=== PATIENT | male | born 1970 | race Caucasian/White ===

== ENCOUNTER 2021-04-15 20:32 | Inpatient (IN) ==
[2021-04-15] MEDS ORDERED: SOTROVIMAB 500 MG VIAL 500 MG in NS 0.9% 100 ml BAG 100 ML IV ONE (23:50)
[2021-04-16] MEDS ORDERED: Dexamethasone IV 4 MG/ML VIAL 1 ml VIAL IV SLOW PU ONE (00:16)
[2021-04-16] MEDS ORDERED: NS 0.9% 50 ML 50 ML IV ONE (00:22)
[2021-04-16] MEDS ORDERED: Lactated Ringers 1000 ml BAG 1,000 ML IV ONE ×2 (01:00→02:45)
[2021-04-16 01:29] LABS: Venous Bicarbonate HCO3 27.4 mmol/L (24-28)
[2021-04-16 01:34] LABS: ABS Lymphocytes 0.8 10^3/ul (1.0-4.8); ABS Monocytes 0.3 10^3/ul (0-0.8); ABS Neutrophils 2.5 10^3/ul (1.5-7.7); Eosinophil % 0.1 %; Hematocrit 44 % (42-52); Hemoglobin 15.5 g/dL (14.0-18.0); Lymphocyte % 21.7 %; Mean Corpuscular HGB Conc 36 g/dL (31-36); Mean Corpuscular Hemoglobin 30 pg (27-31); Mean Corpuscular Volume 84 fL (80-94); Mean Platelet Volume 8.7 fL (7.4-10.4); Nucleated Red Blood Cells % 0.1; Platelet Count 126 10^3/uL (150-450); Red Blood Count 5.16 10^6 /uL (4.18-5.48); Red Cell Distribution Width 13 % (10-15); White Blood Count 3.6 10^3/uL (3.5-10.8)
[2021-04-16] MEDS ORDERED: Ondansetron 4 mg VIAL 2 MG/ML 2 ml VIAL IV PRN (01:50)
[2021-04-16 01:51] LABS: Albumin 3.8 g/dL (3.2-5.2); Albumin/Globulin Ratio 1.5 (1-3); C Reactive Protein 72.39 mg/L (<8.01); Calcium 8.1 mg/dL (8.6-10.3); Globulin 2.6 g/dL (2-4); Potassium 3.7 mmol/L (3.5-5.0); Total Bilirubin 0.5 mg/dL (0.2-1.0); Total Protein 6.4 g/dL (6.4-8.9)
[2021-04-16 01:52] LABS: Troponin I 0.02 ng/mL (<0.03)
[2021-04-16 01:56] LABS: Activated Partial Thrombo Time 29.6 seconds (26.0-38.0); INR 1.1 (0.86-1.15)
[2021-04-16] MEDS ORDERED: Albuterol HFA INHALER 8 gm MDI INH PRN (02:06)
[2021-04-16 03:43] LABS: Ferritin 4912.4 ng/mL (24-336)
[2021-04-16] MEDS: Enoxaparin 40 MG/0.4 ML SYR SUBCUT SCH (04:51)
[2021-04-17] MEDS ORDERED: Dextran 70/Hypromellose Tears Eye Drops 15 ml BTL (for Artificials Tears) BOTH EYES PRN (01:00)
[2021-04-17 07:12] LABS: ABS Lymphocytes 1.2 10^3/ul (1.0-4.8); ABS Neutrophils 4.1 10^3/ul (1.5-7.7); Hematocrit 41 % (42-52); Hemoglobin 14.6 g/dL (14.0-18.0); Lymphocyte % 19.2 %; Mean Corpuscular HGB Conc 36 g/dL (31-36); Mean Corpuscular Hemoglobin 30 pg (27-31); Mean Corpuscular Volume 85 fL (80-94); Mean Platelet Volume 8.8 fL (7.4-10.4); Platelet Count 175 10^3/uL (150-450); Red Blood Count 4.81 10^6 /uL (4.18-5.48); Red Cell Distribution Width 13 % (10-15); White Blood Count 6.3 10^3/uL (3.5-10.8)
[2021-04-17 07:27] LABS: Calcium 8.4 mg/dL (8.6-10.3); Potassium 4.9 mmol/L (3.5-5.0); eGFR CKD-EPI 75.8 (>60)
[2021-04-17] MEDS: Enoxaparin 40 MG/0.4 ML SYR SUBCUT SCH (08:50)
[2021-04-17] MEDS ORDERED: Dextrose 50% Syringe 50 ml 25 GM/50 ML SYRINGE IV PUSH PRN ×2 (09:54→10:35)
[2021-04-17] MEDS: Insulin GLARGINE 100 un/ml 10 ml VIAL SUBCUT SCH (11:21)
[2021-04-18 07:18] LABS: ABS Monocytes 1.2 10^3/ul (0-0.8); ABS Neutrophils 8.2 10^3/ul (1.5-7.7); Hematocrit 40 % (42-52); Hemoglobin 14.2 g/dL (14.0-18.0); Lymphocyte % 9.7 %; Mean Corpuscular HGB Conc 36 g/dL (31-36); Mean Corpuscular Hemoglobin 30 pg (27-31); Mean Corpuscular Volume 85 fL (80-94); Mean Platelet Volume 7.8 fL (7.4-10.4); Platelet Count 216 10^3/uL (150-450); Red Blood Count 4.71 10^6 /uL (4.18-5.48); Red Cell Distribution Width 13 % (10-15); White Blood Count 10.4 10^3/uL (3.5-10.8)
[2021-04-18 07:38] LABS: Albumin 3.5 g/dL (3.2-5.2); Albumin/Globulin Ratio 1.4 (1-3); Calcium 8.1 mg/dL (8.6-10.3); Direct Bilirubin 0.1 mg/dL (0.03-0.18); Globulin 2.5 g/dL (2-4); Indirect Bilirubin 0.6 mg/dL (0.3-1.0); Potassium 4.5 mmol/L (3.5-5.0); Total Bilirubin 0.7 mg/dL (0.2-1.0); eGFR CKD-EPI 83.5 (>60)
[2021-04-18] MEDS: Enoxaparin 40 MG/0.4 ML SYR SUBCUT SCH (08:04)
[2021-04-18] MEDS: Insulin GLARGINE 100 un/ml 10 ml VIAL SUBCUT SCH (08:42)
[2021-04-18] MEDS ORDERED: Insulin GLARGINE 100 un/ml 10 ml VIAL SUBCUT ONE (10:07)
[2021-04-18] MEDS ORDERED: Remdesivir 100 mg Vial 200 MG in NS 0.9% 250 ml 210 ML IV ONE (10:30)
[2021-04-18 13:04] LABS: INR 1.04 (0.86-1.15)
[2021-04-18 13:09] LABS: Albumin 3.7 g/dL (3.2-5.2); Albumin/Globulin Ratio 1.3 (1-3); Calcium 8.3 mg/dL (8.6-10.3); Globulin 2.8 g/dL (2-4); Potassium 4.4 mmol/L (3.5-5.0); Total Bilirubin 0.7 mg/dL (0.2-1.0); Total Protein 6.5 g/dL (6.4-8.9); eGFR CKD-EPI 77.4 (>60)
[2021-04-18] MEDS: methylPREDNISolone 125 mg 2 ML VIAL IV SCH (17:49)
[2021-04-18 20:34] LABS: Glucose Confirmatory 416 mg/dL (70-100)
[2021-04-19] MEDS: methylPREDNISolone 125 mg 2 ML VIAL IV SCH ×3 (02:00→17:23)
[2021-04-19 07:06] LABS: ABS Lymphocytes 1.1 10^3/ul (1.0-4.8); ABS Monocytes 1.1 10^3/ul (0-0.8); ABS Neutrophils 6.1 10^3/ul (1.5-7.7); Eosinophil % 0.1 %; Hematocrit 41 % (42-52); Hemoglobin 14.6 g/dL (14.0-18.0); Lymphocyte % 13.2 %; Mean Corpuscular HGB Conc 35 g/dL (31-36); Mean Corpuscular Hemoglobin 30 pg (27-31); Mean Corpuscular Volume 86 fL (80-94); Mean Platelet Volume 8.2 fL (7.4-10.4); Nucleated Red Blood Cells % 0.1; Platelet Count 235 10^3/uL (150-450); Red Blood Count 4.82 10^6 /uL (4.18-5.48); Red Cell Distribution Width 13 % (10-15); White Blood Count 8.2 10^3/uL (3.5-10.8)
[2021-04-19 07:12] LABS: INR 1.01 (0.86-1.15)
[2021-04-19 07:29] LABS: Albumin 3.7 g/dL (3.2-5.2); Albumin/Globulin Ratio 1.4 (1-3); Calcium 8.3 mg/dL (8.6-10.3); Globulin 2.7 g/dL (2-4); Potassium 4.5 mmol/L (3.5-5.0); Total Bilirubin 0.8 mg/dL (0.2-1.0); Total Protein 6.4 g/dL (6.4-8.9); eGFR CKD-EPI 98.8 (>60)
[2021-04-19] MEDS ORDERED: Furosemide 40 mg/4 ml IV VIAL IV ONE ×2 (08:24→19:02)
[2021-04-19] MEDS: Enoxaparin 40 MG/0.4 ML SYR SUBCUT SCH (08:26)
[2021-04-19] MEDS: Insulin GLARGINE 100 un/ml 10 ml VIAL SUBCUT SCH (08:51)
[2021-04-19] MEDS: Remdesivir 100 mg Vial 100 MG in NS 0.9% 250 ml 230 ML IV SCH (09:27)
[2021-04-19] MEDS ORDERED: Insulin GLARGINE 100 un/ml 10 ml VIAL SUBCUT SCH ×2 (10:00)
[2021-04-19] MEDS ORDERED: Dextrose 50% Syringe 50 ml 25 GM/50 ML SYRINGE IV PUSH PRN (12:27)
[2021-04-19 18:42] LABS: PCO2 Arterial 34 mmHg (35-45); PO2 Arterial 76 mmHg (80-100)
[2021-04-19] MEDS ORDERED: Albuterol/Ipratropium NEB.SOL (2.5/0.5 MG) 3 ML NEB.SOLN INH ONE (19:02)
[2021-04-19] MEDS ORDERED: Insulin GLARGINE 100 un/ml 10 ml VIAL SUBCUT ONE (21:00)
[2021-04-19 22:07] LABS: Glucose Confirmatory 457 mg/dL (70-100)
[2021-04-20] MEDS: methylPREDNISolone SOD 40 mg/ml 1 ml VIAL IV SCH ×3 (00:54→18:28)
[2021-04-20 04:34] LABS: ABS Lymphocytes 1.2 10^3/ul (1.0-4.8); ABS Monocytes 1.5 10^3/ul (0-0.8); ABS Neutrophils 6.5 10^3/ul (1.5-7.7); Hematocrit 40 % (42-52); Hemoglobin 14.2 g/dL (14.0-18.0); Mean Corpuscular HGB Conc 35 g/dL (31-36); Mean Corpuscular Hemoglobin 30 pg (27-31); Mean Corpuscular Volume 85 fL (80-94); Mean Platelet Volume 7.8 fL (7.4-10.4); Platelet Count 270 10^3/uL (150-450); Red Blood Count 4.74 10^6 /uL (4.18-5.48); Red Cell Distribution Width 12 % (10-15); White Blood Count 9.2 10^3/uL (3.5-10.8)
[2021-04-20 04:42] LABS: INR 1.04 (0.86-1.15)
[2021-04-20 04:47] LABS: PCO2 Arterial 36 mmHg (35-45); PO2 Arterial 64 mmHg (80-100)
[2021-04-20 04:50] LABS: Albumin 3.5 g/dL (3.2-5.2); Albumin/Globulin Ratio 1.3 (1-3); Calcium 8.3 mg/dL (8.6-10.3); Globulin 2.7 g/dL (2-4); Potassium 3.7 mmol/L (3.5-5.0); Total Bilirubin 0.6 mg/dL (0.2-1.0); Total Protein 6.2 g/dL (6.4-8.9); eGFR CKD-EPI 83.5 (>60)
[2021-04-20] MEDS ORDERED: Potassium Chlor 20 meq TAB.ER PO ONE (05:06)
[2021-04-20] MEDS ORDERED: Furosemide 40 mg/4 ml IV VIAL IV SLOW PU ONE (07:59)
[2021-04-20] MEDS: Enoxaparin 40 MG/0.4 ML SYR SUBCUT SCH (08:39)
[2021-04-20] MEDS: Insulin GLARGINE 100 un/ml 10 ml VIAL SUBCUT SCH (08:39)
[2021-04-20] MEDS: Remdesivir 100 mg Vial 100 MG in NS 0.9% 250 ml 230 ML IV SCH (10:14)
[2021-04-20 18:12] LABS: Glucose Confirmatory 419 mg/dL (70-100)
[2021-04-21] MEDS: methylPREDNISolone SOD 40 mg/ml 1 ml VIAL IV SCH ×3 (00:27→20:38)
[2021-04-21 05:43] LABS: Albumin 3.5 g/dL (3.2-5.2); Albumin/Globulin Ratio 1.3 (1-3); Calcium 8.1 mg/dL (8.6-10.3); Globulin 2.6 g/dL (2-4); Potassium 4.4 mmol/L (3.5-5.0); Total Bilirubin 0.9 mg/dL (0.2-1.0); Total Protein 6.1 g/dL (6.4-8.9); eGFR CKD-EPI 97.5 (>60)
[2021-04-21] MEDS: Enoxaparin 40 MG/0.4 ML SYR SUBCUT SCH (08:31)
[2021-04-21] MEDS ORDERED: Furosemide 40 mg/4 ml IV VIAL IV SLOW PU ONE (09:33)
[2021-04-21] MEDS ORDERED: Insulin GLARGINE 100 un/ml 10 ml VIAL SUBCUT SCH (10:00)
[2021-04-21] MEDS: Remdesivir 100 mg Vial 100 MG in NS 0.9% 250 ml 230 ML IV SCH (10:51)
[2021-04-21] MEDS: Insulin GLARGINE 100 un/ml 10 ml VIAL SUBCUT SCH (20:38)
[2021-04-22 05:06] LABS: INR 1.02 (0.86-1.15)
[2021-04-22 05:16] LABS: Albumin 3.3 g/dL (3.2-5.2); Albumin/Globulin Ratio 1.4 (1-3); Calcium 7.8 mg/dL (8.6-10.3); Globulin 2.4 g/dL (2-4); Magnesium 2.4 mg/dL (1.9-2.7); Phosphorus 3.9 mg/dL (2.5-5.0); Potassium 4.7 mmol/L (3.5-5.0); Total Bilirubin 0.8 mg/dL (0.2-1.0); Total Protein 5.7 g/dL (6.4-8.9); eGFR CKD-EPI 90.6 (>60)
[2021-04-22] MEDS ORDERED: Furosemide 40 mg/4 ml IV VIAL IV ONE (08:31)
[2021-04-22] MEDS: Enoxaparin 40 MG/0.4 ML SYR SUBCUT SCH (09:04)
[2021-04-22] MEDS: methylPREDNISolone SOD 40 mg/ml 1 ml VIAL IV SCH ×2 (09:06→21:12)
[2021-04-22] MEDS: Insulin GLARGINE 100 un/ml 10 ml VIAL SUBCUT SCH ×2 (09:07→21:20)
[2021-04-22] MEDS ORDERED: Acetaminophen IV 1 GM/100ML 50 ML IV ONE (12:30)
[2021-04-22 13:53] LABS: Calcium 8.2 mg/dL (8.6-10.3); Magnesium 2.2 mg/dL (1.9-2.7); eGFR CKD-EPI 85.4 (>60)
[2021-04-22 15:03] LABS: Potassium 4.8 mmol/L (3.5-5.0)
[2021-04-22 17:27] LABS: Glucose Confirmatory 418 mg/dL (70-100)
[2021-04-23 05:18] LABS: INR 1.04 (0.86-1.15)
[2021-04-23 05:27] LABS: Albumin 3.3 g/dL (3.2-5.2); Albumin/Globulin Ratio 1.3 (1-3); Calcium 8.4 mg/dL (8.6-10.3); Globulin 2.5 g/dL (2-4); Total Bilirubin 0.7 mg/dL (0.2-1.0); Total Protein 5.8 g/dL (6.4-8.9); eGFR CKD-EPI 98.8 (>60)
[2021-04-23 08:24] LABS: Hematocrit 39 % (42-52); Hemoglobin 13.6 g/dL (14.0-18.0); Mean Corpuscular HGB Conc 35 g/dL (31-36); Mean Corpuscular Hemoglobin 30 pg (27-31); Mean Corpuscular Volume 86 fL (80-94); Mean Platelet Volume 8.7 fL (7.4-10.4); Platelet Count 261 10^3/uL (150-450); Red Blood Count 4.55 10^6 /uL (4.18-5.48); Red Cell Distribution Width 13 % (10-15); White Blood Count 11.8 10^3/uL (3.5-10.8)
[2021-04-23] MEDS: Enoxaparin 40 MG/0.4 ML SYR SUBCUT SCH (08:25)
[2021-04-23] MEDS: Insulin GLARGINE 100 un/ml 10 ml VIAL SUBCUT SCH ×2 (08:25→21:14)
[2021-04-23] MEDS: methylPREDNISolone SOD 40 mg/ml 1 ml VIAL IV SCH (08:25)
[2021-04-23] MEDS ORDERED: Furosemide 40 mg/4 ml IV VIAL IV ONE (15:28)
[2021-04-23] MEDS: methylPREDNISolone 125 mg 2 ML VIAL IV SCH (21:05)
[2021-04-24 08:49] LABS: Hematocrit 42 % (42-52); Hemoglobin 14.5 g/dL (14.0-18.0); Mean Corpuscular HGB Conc 34 g/dL (31-36); Mean Corpuscular Hemoglobin 30 pg (27-31); Mean Corpuscular Volume 87 fL (80-94); Mean Platelet Volume 7.8 fL (7.4-10.4); Platelet Count 220 10^3/uL (150-450); Red Blood Count 4.89 10^6 /uL (4.18-5.48); Red Cell Distribution Width 13 % (10-15); White Blood Count 11.3 10^3/uL (3.5-10.8)
[2021-04-24 09:04] LABS: Albumin 3.6 g/dL (3.2-5.2); Albumin/Globulin Ratio 1.3 (1-3); Calcium 8.7 mg/dL (8.6-10.3); Globulin 2.8 g/dL (2-4); Potassium 4.6 mmol/L (3.5-5.0); Total Bilirubin 0.6 mg/dL (0.2-1.0); Total Protein 6.4 g/dL (6.4-8.9)
[2021-04-24] MEDS ORDERED: Insulin GLARGINE 100 un/ml 10 ml VIAL ONE (09:06)
[2021-04-24] MEDS: Insulin GLARGINE 100 un/ml 10 ml VIAL SUBCUT SCH ×2 (09:16→20:55)
[2021-04-24] MEDS: methylPREDNISolone 125 mg 2 ML VIAL IV SCH ×2 (09:16→20:27)
[2021-04-24] MEDS: Enoxaparin 40 MG/0.4 ML SYR SUBCUT SCH (09:16)
[2021-04-24 09:50] LABS: RBC Morphology Normal (Normal)
[2021-04-24 09:51] LABS: ABS Lymphocytes 0.9 10^3/ul (1.0-4.8); ABS Monocytes 0.5 10^3/ul (0-0.8); ABS Neutrophils 9.9 10^3/ul (1.5-7.7); Eosinophil % 0.2 %; Lymphocyte % 7.8 %; Nucleated Red Blood Cells % 0.3
[2021-04-24] MEDS ORDERED: Furosemide 40 mg/4 ml IV VIAL IV ONE (11:26)
[2021-04-24 12:26] LABS: Glucose Confirmatory 435 mg/dL (70-100)
[2021-04-24 17:28] LABS: Glucose Confirmatory 434 mg/dL (70-100)
[2021-04-24 20:37] LABS: Glucose Confirmatory 425 mg/dL (70-100)
[2021-04-25] MEDS ORDERED: Dextrose 50% Syringe 50 ml 25 GM/50 ML SYRINGE IV PUSH PRN (00:49)
[2021-04-25 05:13] LABS: Hematocrit 42 % (42-52); Hemoglobin 14.9 g/dL (14.0-18.0); Mean Corpuscular HGB Conc 35 g/dL (31-36); Mean Corpuscular Hemoglobin 30 pg (27-31); Mean Corpuscular Volume 84 fL (80-94); Mean Platelet Volume 8.1 fL (7.4-10.4); Platelet Count 226 10^3/uL (150-450); Red Blood Count 5.01 10^6 /uL (4.18-5.48); Red Cell Distribution Width 13 % (10-15); White Blood Count 17.2 10^3/uL (3.5-10.8)
[2021-04-25 05:26] LABS: Albumin 3.6 g/dL (3.2-5.2); Albumin/Globulin Ratio 1.1 (1-3); Calcium 8.7 mg/dL (8.6-10.3); Globulin 3.2 g/dL (2-4); Potassium 4.1 mmol/L (3.5-5.0); Total Bilirubin 0.7 mg/dL (0.2-1.0); Total Protein 6.8 g/dL (6.4-8.9); eGFR CKD-EPI 88.4 (>60)
[2021-04-25 05:39] LABS: ABS Eosinophils 0.4 10^3/ul (0-0.6); ABS Lymphocytes 1.4 10^3/ul (1.0-4.8); ABS Monocytes 0.5 10^3/ul (0-0.8); ABS Neutrophils 14.9 10^3/ul (1.5-7.7); Eosinophil % 2.5 %; Lymphocyte % 8.3 %
[2021-04-25] MEDS: Insulin GLARGINE 100 un/ml 10 ml VIAL SUBCUT SCH ×2 (09:02→20:53)
[2021-04-25] MEDS: Enoxaparin 40 MG/0.4 ML SYR SUBCUT SCH (09:02)
[2021-04-25] MEDS: methylPREDNISolone 125 mg 2 ML VIAL IV SCH (09:03)
[2021-04-25] MEDS ORDERED: Furosemide 40 mg/4 ml IV VIAL IV ONE (12:20)
[2021-04-25] MEDS: methylPREDNISolone SOD 40 mg/ml 1 ml VIAL IV SCH (20:54)
[2021-04-25] MEDS ORDERED: methylPREDNISolone 125 mg 2 ML VIAL IV SCH (21:00)
[2021-04-26 04:35] LABS: ABS Eosinophils 0.1 10^3/ul (0-0.6); ABS Monocytes 0.6 10^3/ul (0-0.8); ABS Neutrophils 11.2 10^3/ul (1.5-7.7); Eosinophil % 0.4 %; Hematocrit 41 % (42-52); Mean Corpuscular HGB Conc 35 g/dL (31-36); Mean Corpuscular Hemoglobin 30 pg (27-31); Mean Corpuscular Volume 87 fL (80-94); Mean Platelet Volume 8.1 fL (7.4-10.4); Platelet Count 183 10^3/uL (150-450); Red Blood Count 4.65 10^6 /uL (4.18-5.48); Red Cell Distribution Width 13 % (10-15); White Blood Count 12.8 10^3/uL (3.5-10.8)
[2021-04-26 04:51] LABS: Albumin 3.4 g/dL (3.2-5.2); Albumin/Globulin Ratio 1.1 (1-3); Calcium 8.7 mg/dL (8.6-10.3); Globulin 3.2 g/dL (2-4); Potassium 4.9 mmol/L (3.5-5.0); Total Bilirubin 0.6 mg/dL (0.2-1.0); Total Protein 6.6 g/dL (6.4-8.9); eGFR CKD-EPI 102.8 (>60)
[2021-04-26] MEDS: Insulin GLARGINE 100 un/ml 10 ml VIAL SUBCUT SCH ×2 (08:08→21:41)
[2021-04-26] MEDS: Enoxaparin 40 MG/0.4 ML SYR SUBCUT SCH (08:09)
[2021-04-26] MEDS ORDERED: Furosemide 40 mg/4 ml IV VIAL IV SLOW PU ONE (11:38)
[2021-04-26] MEDS ORDERED: Morphine 2 MG/ML SYRINGE ONE (13:21)
[2021-04-26] MEDS: Morphine 2 MG/ML SYRINGE IV PRN ×3 (13:25→22:33)
[2021-04-26] MEDS ORDERED: Lorazepam PYXIS KEY PRN ×2 (20:06→22:16)
[2021-04-26] MEDS ORDERED: LORazepam 2 mg VIAL 1 ml IV PUSH ONE ×2 (20:07→22:16)
[2021-04-26] MEDS: methylPREDNISolone SOD 40 mg/ml 1 ml VIAL IV SCH (20:28)
[2021-04-26] MEDS ORDERED: diPHENhydraMINE 25 mg TAB PO ONE (22:27)
[2021-04-26] MEDS ORDERED: diPHENhydraMINE 25 mg TAB ONE (22:31)
[2021-04-26 22:39] LABS: PCO2 Arterial 41 mmHg (35-45); PO2 Arterial 72 mmHg (80-100)
[2021-04-26] MEDS ORDERED: Dexmedetomidine 1,000 MCG in NS 0.9% 250 ml 240 ML IV SCH (23:45)
[2021-04-27] MEDS ORDERED: Haloperidol 5 mg/ml SDV IV/IM 5 MG/ML AMP IV SLOW PU PRN (01:19)
[2021-04-27] MEDS ORDERED: Haloperidol 5 mg/ml SDV IV/IM 5 MG/ML AMP ONE (01:26)
[2021-04-27 04:31] LABS: ABS Eosinophils 0.1 10^3/ul (0-0.6); ABS Lymphocytes 0.8 10^3/ul (1.0-4.8); ABS Monocytes 0.5 10^3/ul (0-0.8); Eosinophil % 0.7 %; Hematocrit 38 % (42-52); Hemoglobin 12.9 g/dL (14.0-18.0); Lymphocyte % 6.1 %; Mean Corpuscular HGB Conc 34 g/dL (31-36); Mean Corpuscular Hemoglobin 30 pg (27-31); Mean Corpuscular Volume 87 fL (80-94); Mean Platelet Volume 7.8 fL (7.4-10.4); Platelet Count 151 10^3/uL (150-450); Red Blood Count 4.36 10^6 /uL (4.18-5.48); Red Cell Distribution Width 13 % (10-15); White Blood Count 13.5 10^3/uL (3.5-10.8)
[2021-04-27 04:46] LABS: Albumin 3.2 g/dL (3.2-5.2); Albumin/Globulin Ratio 1.1 (1-3); Calcium 8.3 mg/dL (8.6-10.3); Globulin 2.9 g/dL (2-4); Magnesium 2.2 mg/dL (1.9-2.7); Phosphorus 4.2 mg/dL (2.5-5.0); Total Bilirubin 0.7 mg/dL (0.2-1.0); Total Protein 6.1 g/dL (6.4-8.9); eGFR CKD-EPI 82.6 (>60)
[2021-04-27] MEDS: Insulin GLARGINE 100 un/ml 10 ml VIAL SUBCUT SCH (09:09)
[2021-04-27] MEDS: Enoxaparin 40 MG/0.4 ML SYR SUBCUT SCH (09:09)
[2021-04-27 09:22] LABS: Urine Appearance Cloudy; Urine Bilirubin Negative (Negative); Urine Blood 1+ (Negative); Urine Color Yellow; Urine Glucose Negative (Negative); Urine Ketones Negative (Negative); Urine Nitrite Negative (Negative); Urine Protein 1+(30 mg/dL) (Negative); Urine Urobilinogen Negative (Negative)
[2021-04-27 09:44] LABS: Urine Bacteria Absent (Absent); Urine Red Blood Cell 2+(6-10/hpf) (Absent); Urine Squamous Epithelial Cell Present (Absent); Urine White Blood Cell Trace(0-5/hpf) (Absent)
[2021-04-27] MEDS ORDERED: Acetaminophen IV 1 GM/100ML 100 ML IV ONE (13:47)
[2021-04-27] MEDS: Morphine 2 MG/ML SYRINGE IV PRN ×3 (13:55→23:43)
[2021-04-27] MEDS ORDERED: Acetaminophen IV 1 GM/100ML VI 100 ML ONE (14:41)
[2021-04-27] MEDS ORDERED: Piperacillin/Tazobac ADVAN 3.375 GM in NS 0.9% 100 ml BAG 100 ML IV ONE (15:06)
[2021-04-27] MEDS ORDERED: Zosyn per Pharmacy NOTE FOLLOW UP SCH (16:00)
[2021-04-27] MEDS ORDERED: Acetaminophen IV 1 GM/100ML VI 100 ML IV ONE (20:00)
[2021-04-27] MEDS: ZOSYN 3.375 GM Q8H per EXTENDED INFUSION IV SCH (20:01)
[2021-04-27] MEDS: methylPREDNISolone SOD 40 mg/ml 1 ml VIAL IV SCH (22:21)
[2021-04-28] MEDS: ZOSYN 3.375 GM Q8H per EXTENDED INFUSION IV SCH ×3 (03:19→20:06)
[2021-04-28] MEDS: Morphine 2 MG/ML SYRINGE IV PRN ×5 (03:19→20:06)
[2021-04-28 07:06] LABS: ABS Lymphocytes 0.7 10^3/ul (1.0-4.8); ABS Monocytes 0.4 10^3/ul (0-0.8); ABS Neutrophils 9.9 10^3/ul (1.5-7.7); Eosinophil % 0.2 %; Hematocrit 40 % (42-52); Hemoglobin 13.5 g/dL (14.0-18.0); Lymphocyte % 6.1 %; Mean Corpuscular HGB Conc 34 g/dL (31-36); Mean Corpuscular Hemoglobin 30 pg (27-31); Mean Corpuscular Volume 88 fL (80-94); Mean Platelet Volume 8.4 fL (7.4-10.4); Platelet Count 135 10^3/uL (150-450); Red Blood Count 4.52 10^6 /uL (4.18-5.48); Red Cell Distribution Width 13 % (10-15); White Blood Count 11.1 10^3/uL (3.5-10.8)
[2021-04-28 07:20] LABS: Albumin 3.1 g/dL (3.2-5.2); Calcium 8.3 mg/dL (8.6-10.3); Globulin 3.1 g/dL (2-4); Magnesium 2.4 mg/dL (1.9-2.7); Phosphorus 4.8 mg/dL (2.5-5.0); Potassium 4.9 mmol/L (3.5-5.0); Total Bilirubin 0.8 mg/dL (0.2-1.0); Total Protein 6.2 g/dL (6.4-8.9); eGFR CKD-EPI 69.3 (>60)
[2021-04-28] MEDS ORDERED: Furosemide 40 mg/4 ml IV VIAL IV SLOW PU ONE (10:07)
[2021-04-28] MEDS: Enoxaparin 40 MG/0.4 ML SYR SUBCUT SCH (10:39)
[2021-04-28] MEDS ORDERED: Morphine 2 MG/ML SYRINGE ONE (11:51)
[2021-04-28] MEDS ORDERED: Morphine 2 MG/ML SYRINGE IV ONE (11:52)
[2021-04-28] MEDS: methylPREDNISolone SOD 40 mg/ml 1 ml VIAL IV SCH (20:07)
[2021-04-29] MEDS: ZOSYN 3.375 GM Q8H per EXTENDED INFUSION IV SCH ×3 (02:37→19:08)
[2021-04-29 05:02] LABS: ABS Lymphocytes 0.6 10^3/ul (1.0-4.8); ABS Monocytes 0.4 10^3/ul (0-0.8); ABS Neutrophils 10.2 10^3/ul (1.5-7.7); Hematocrit 38 % (42-52); Hemoglobin 13.1 g/dL (14.0-18.0); Lymphocyte % 5.4 %; Mean Corpuscular HGB Conc 34 g/dL (31-36); Mean Corpuscular Hemoglobin 30 pg (27-31); Mean Corpuscular Volume 87 fL (80-94); Nucleated Red Blood Cells % 0.1; Platelet Count 147 10^3/uL (150-450); Red Blood Count 4.42 10^6 /uL (4.18-5.48); Red Cell Distribution Width 13 % (10-15); White Blood Count 11.1 10^3/uL (3.5-10.8)
[2021-04-29] MEDS: Morphine 2 MG/ML SYRINGE IV PRN ×6 (05:06→21:00)
[2021-04-29 05:18] LABS: Calcium 8.2 mg/dL (8.6-10.3); Magnesium 2.4 mg/dL (1.9-2.7); Phosphorus 4.1 mg/dL (2.5-5.0); Potassium 4.7 mmol/L (3.5-5.0); eGFR CKD-EPI 71.3 (>60)
[2021-04-29] MEDS: Enoxaparin 40 MG/0.4 ML SYR SUBCUT SCH (08:30)
[2021-04-29] MEDS ORDERED: Furosemide 40 mg/4 ml IV VIAL IV ONE (09:03)
[2021-04-29] MEDS: methylPREDNISolone SOD 40 mg/ml 1 ml VIAL IV SCH ×2 (11:03→21:39)
[2021-04-29] MEDS ORDERED: methylPREDNISolone 125 mg 2 ML VIAL IV ONE (12:50)
[2021-04-29] MEDS ORDERED: Insulin GLARGINE 100 un/ml 10 ml VIAL SUBCUT SCH (21:00)
[2021-04-29 21:23] LABS: Glucose Confirmatory 450 mg/dL (70-100)
[2021-04-29] MEDS: Insulin GLARGINE 100 un/ml 10 ml VIAL SUBCUT SCH (21:39)
[2021-04-30] MEDS: Morphine 2 MG/ML SYRINGE IV PRN ×7 (02:38→23:48)
[2021-04-30] MEDS: ZOSYN 3.375 GM Q8H per EXTENDED INFUSION IV SCH ×3 (02:38→21:13)
[2021-04-30 05:57] LABS: ABS Lymphocytes 0.7 10^3/ul (1.0-4.8); ABS Monocytes 0.4 10^3/ul (0-0.8); Eosinophil % 0.1 %; Hematocrit 38 % (42-52); Hemoglobin 13.5 g/dL (14.0-18.0); Lymphocyte % 10.2 %; Mean Corpuscular HGB Conc 35 g/dL (31-36); Mean Corpuscular Hemoglobin 31 pg (27-31); Mean Corpuscular Volume 87 fL (80-94); Mean Platelet Volume 8.3 fL (7.4-10.4); Nucleated Red Blood Cells % 0.1; Platelet Count 170 10^3/uL (150-450); Red Blood Count 4.39 10^6 /uL (4.18-5.48); Red Cell Distribution Width 12 % (10-15); White Blood Count 7.2 10^3/uL (3.5-10.8)
[2021-04-30 06:17] LABS: Calcium 8.5 mg/dL (8.6-10.3); Magnesium 2.4 mg/dL (1.9-2.7); Potassium 4.7 mmol/L (3.5-5.0); eGFR CKD-EPI 75.8 (>60)
[2021-04-30] MEDS ORDERED: Furosemide 20 mg/2 ml IV VIAL IV SLOW PU ONE ×2 (08:51→15:49)
[2021-04-30] MEDS ORDERED: Senna TAB 8.6 mg TAB PO PRN (09:22)
[2021-04-30] MEDS ORDERED: Furosemide 40 mg/4 ml IV VIAL ONE (09:30)
[2021-04-30] MEDS: Enoxaparin 40 MG/0.4 ML SYR SUBCUT SCH (09:32)
[2021-04-30] MEDS: methylPREDNISolone SOD 40 mg/ml 1 ml VIAL IV SCH ×2 (09:34→23:38)
[2021-04-30] MEDS: Insulin GLARGINE 100 un/ml 10 ml VIAL SUBCUT SCH (09:59)
[2021-04-30 14:52] LABS: PCO2 Arterial 40 mmHg (35-45)
[2021-04-30 15:01] LABS: PO2 Arterial 52 mmHg (80-100)
[2021-04-30] MEDS ORDERED: Dextrose 50% Syringe 50 ml 25 GM/50 ML SYRINGE IV PUSH PRN (17:13)
[2021-04-30] MEDS: Magnesium Hydroxide LIQ 30 ML UDC PO SCH (17:17)
[2021-04-30] MEDS: Polyethylene Glycol 3350 17 GM PACKET PO SCH (20:51)
[2021-04-30] MEDS ORDERED: Magnesium Hydroxide LIQ 30 ML UDC PO SCH (21:00)
[2021-04-30 21:22] LABS: PCO2 Arterial 43 mmHg (35-45); PO2 Arterial 71 mmHg (80-100)
[2021-05-01] MEDS: ZOSYN 3.375 GM Q8H per EXTENDED INFUSION IV SCH ×3 (03:59→20:23)
[2021-05-01 05:54] LABS: Hematocrit 40 % (42-52); Hemoglobin 13.6 g/dL (14.0-18.0); Mean Corpuscular HGB Conc 34 g/dL (31-36); Mean Corpuscular Hemoglobin 30 pg (27-31); Mean Corpuscular Volume 87 fL (80-94); Mean Platelet Volume 8.9 fL (7.4-10.4); Platelet Count 189 10^3/uL (150-450); Red Blood Count 4.57 10^6 /uL (4.18-5.48); Red Cell Distribution Width 13 % (10-15); White Blood Count 13.7 10^3/uL (3.5-10.8)
[2021-05-01 06:11] LABS: Calcium 8.3 mg/dL (8.6-10.3); Magnesium 2.3 mg/dL (1.9-2.7); Potassium 5.1 mmol/L (3.5-5.0); eGFR CKD-EPI 82.6 (>60)
[2021-05-01 06:44] LABS: Phosphorus 3.6 mg/dL (2.5-5.0)
[2021-05-01] MEDS: Polyethylene Glycol 3350 17 GM PACKET PO SCH ×2 (07:32→20:37)
[2021-05-01] MEDS: Morphine 2 MG/ML SYRINGE IV PRN ×8 (08:01→20:35)
[2021-05-01] MEDS ORDERED: Furosemide 40 mg/4 ml IV VIAL IV ONE (08:49)
[2021-05-01] MEDS: Enoxaparin 40 MG/0.4 ML SYR SUBCUT SCH (08:57)
[2021-05-01] MEDS ORDERED: Insulin GLARGINE 100 un/ml 10 ml VIAL SUBCUT SCH (09:00)
[2021-05-01] MEDS: Acetylcysteine 600mgCAP(RENAL) PO SCH ×2 (10:31→20:35)
[2021-05-01] MEDS: methylPREDNISolone SOD 40 mg/ml 1 ml VIAL IV SCH ×2 (10:32→20:33)
[2021-05-01] MEDS: Magnesium Hydroxide LIQ 30 ML UDC PO SCH ×2 (10:46→20:37)
[2021-05-02] MEDS: Morphine 2 MG/ML SYRINGE IV PRN ×15 (00:18→21:35)
[2021-05-02] MEDS: ZOSYN 3.375 GM Q8H per EXTENDED INFUSION IV SCH ×2 (04:17→11:59)
[2021-05-02 04:44] LABS: Albumin 3.3 g/dL (3.2-5.2); Calcium 8.5 mg/dL (8.6-10.3); Magnesium 2.4 mg/dL (1.9-2.7); Total Bilirubin 0.9 mg/dL (0.2-1.0)
[2021-05-02 04:45] LABS: Potassium 5.1 mmol/L (3.5-5.0)
[2021-05-02 04:46] LABS: ABS Lymphocytes 0.8 10^3/ul (1.0-4.8); ABS Monocytes 0.5 10^3/ul (0-0.8); ABS Neutrophils 10.2 10^3/ul (1.5-7.7); Eosinophil % 0.4 %; Hematocrit 41 % (42-52); Hemoglobin 14.1 g/dL (14.0-18.0); Lymphocyte % 7.2 %; Mean Corpuscular HGB Conc 34 g/dL (31-36); Mean Corpuscular Hemoglobin 30 pg (27-31); Mean Corpuscular Volume 87 fL (80-94); Mean Platelet Volume 8.6 fL (7.4-10.4); Platelet Count 173 10^3/uL (150-450); Red Blood Count 4.74 10^6 /uL (4.18-5.48); Red Cell Distribution Width 12 % (10-15); White Blood Count 11.6 10^3/uL (3.5-10.8)
[2021-05-02 04:50] LABS: Albumin/Globulin Ratio 0.9 (1-3); Globulin 3.6 g/dL (2-4); Phosphorus 3.6 mg/dL (2.5-5.0); Total Protein 6.9 g/dL (6.4-8.9); eGFR CKD-EPI 92.8 (>60)
[2021-05-02] MEDS: Enoxaparin 40 MG/0.4 ML SYR SUBCUT SCH (07:43)
[2021-05-02] MEDS: Acetylcysteine 600mgCAP(RENAL) PO SCH ×2 (07:44→21:02)
[2021-05-02] MEDS: Polyethylene Glycol 3350 17 GM PACKET PO SCH ×2 (07:45→21:02)
[2021-05-02] MEDS: methylPREDNISolone SOD 40 mg/ml 1 ml VIAL IV SCH ×2 (07:45→22:12)
[2021-05-02] MEDS ORDERED: Morphine 2 MG/ML SYRINGE ONE ×2 (08:16→09:16)
[2021-05-02] MEDS: Magnesium Hydroxide LIQ 30 ML UDC PO SCH ×2 (09:09→21:02)
[2021-05-02] MEDS ORDERED: Furosemide 40 mg/4 ml IV VIAL IV ONE (09:19)
[2021-05-02 14:05] LABS: C Reactive Protein 64.4 mg/L (<8.01)
[2021-05-02] MEDS ORDERED: Metoprolol Tartrate 5 mg VIAL 5 ml VIAL (1 mg/ml) IV ONE (20:20)
[2021-05-02] MEDS ORDERED: Metoprolol Tartrate 5 mg VIAL 5 ml VIAL (1 mg/ml) ONE (20:21)
[2021-05-02 20:48] LABS: PCO2 Arterial 47 mmHg (35-45)
[2021-05-02] MEDS: Heparin 5000 UNITS/ML 1 mL VIAL IV SCH (20:48)
[2021-05-02] MEDS: Heparin DRIP 25,000 UNITS BAG 25,000 UNITS/500 ML BAG IV SCH (20:49)
[2021-05-02 20:55] LABS: PO2 Arterial Temp Correct <38 mmHg (80-100)
[2021-05-02 20:59] LABS: Hematocrit 47 % (42-52); Hemoglobin 16.2 g/dL (14.0-18.0); Mean Corpuscular HGB Conc 34 g/dL (31-36); Mean Corpuscular Hemoglobin 30 pg (27-31); Mean Corpuscular Volume 87 fL (80-94); Mean Platelet Volume 8.4 fL (7.4-10.4); Platelet Count 234 10^3/uL (150-450); Red Blood Count 5.41 10^6 /uL (4.18-5.48); Red Cell Distribution Width 13 % (10-15); White Blood Count 25.4 10^3/uL (3.5-10.8)
[2021-05-02 21:16] LABS: Calcium 9.1 mg/dL (8.6-10.3); Potassium 4.8 mmol/L (3.5-5.0); eGFR CKD-EPI 77.4 (>60)
[2021-05-02 21:18] LABS: Troponin I 0.01 ng/mL (<0.03)
[2021-05-02 21:36] LABS: ABS Basophils 0.1 10^3/ul (0-0.2); ABS Eosinophils 0.4 10^3/ul (0-0.6); ABS Lymphocytes 2.4 10^3/ul (1.0-4.8); ABS Neutrophils 21.5 10^3/ul (1.5-7.7); Eosinophil % 1.6 %; Lymphocyte % 9.4 %
[2021-05-02] MEDS ORDERED: Morphine 2 MG/ML SYRINGE IV ONE (21:55)
[2021-05-02] MEDS: Insulin GLARGINE 100 un/ml 10 ml VIAL SUBCUT SCH (22:12)
[2021-05-03] MEDS: Morphine 2 MG/ML SYRINGE IV PRN ×11 (04:08→23:35)
[2021-05-03] MEDS: Heparin 5000 UNITS/ML 1 mL VIAL IV SCH (04:24)
[2021-05-03 06:16] LABS: ABS Basophils 0.1 10^3/ul (0-0.2); ABS Eosinophils 0.1 10^3/ul (0-0.6); ABS Lymphocytes 0.9 10^3/ul (1.0-4.8); ABS Monocytes 0.6 10^3/ul (0-0.8); ABS Neutrophils 17.2 10^3/ul (1.5-7.7); Eosinophil % 0.4 %; Hematocrit 42 % (42-52); Hemoglobin 14.2 g/dL (14.0-18.0); Lymphocyte % 4.6 %; Mean Corpuscular HGB Conc 34 g/dL (31-36); Mean Corpuscular Hemoglobin 29 pg (27-31); Mean Corpuscular Volume 87 fL (80-94); Mean Platelet Volume 8.8 fL (7.4-10.4); Platelet Count 163 10^3/uL (150-450); Red Blood Count 4.83 10^6 /uL (4.18-5.48); Red Cell Distribution Width 12 % (10-15); White Blood Count 18.8 10^3/uL (3.5-10.8)
[2021-05-03 06:37] LABS: Calcium 8.5 mg/dL (8.6-10.3); Magnesium 2.4 mg/dL (1.9-2.7); Potassium 4.9 mmol/L (3.5-5.0); eGFR CKD-EPI 89.5 (>60)
[2021-05-03] MEDS: Acetylcysteine 600mgCAP(RENAL) PO SCH ×2 (07:46→21:26)
[2021-05-03] MEDS: Polyethylene Glycol 3350 17 GM PACKET PO SCH ×2 (07:46→21:27)
[2021-05-03] MEDS: Magnesium Hydroxide LIQ 30 ML UDC PO SCH ×2 (07:47→21:27)
[2021-05-03] MEDS: Enoxaparin 40 MG/0.4 ML SYR SUBCUT SCH (07:47)
[2021-05-03 08:22] LABS: Phosphorus 3.7 mg/dL (2.5-5.0)
[2021-05-03] MEDS: methylPREDNISolone SOD 40 mg/ml 1 ml VIAL IV SCH ×2 (08:30→21:27)
[2021-05-03] MEDS: Insulin GLARGINE 100 un/ml 10 ml VIAL SUBCUT SCH (08:30)
[2021-05-03] MEDS ORDERED: Piperacillin/Tazobac ADVAN 3.375 GM in NS 0.9% 100 ml BAG 100 ML IV ONE (09:06)
[2021-05-03] MEDS ORDERED: Zosyn per Pharmacy NOTE FOLLOW UP SCH (10:00)
[2021-05-03] MEDS: Heparin DRIP 25,000 UNITS BAG 25,000 UNITS/500 ML BAG IV SCH ×2 (10:33→23:35)
[2021-05-03] MEDS: CMC: Selenium 200 mcg TAB (NF) PO SCH (12:52)
[2021-05-03] MEDS: ZOSYN 3.375 GM Q8H per EXTENDED INFUSION IV SCH ×2 (15:32→21:28)
[2021-05-03] MEDS ORDERED: Magnesium CITRATE LIQ 300 ML BTL PO ONE (16:13)
[2021-05-03] MEDS ORDERED: Buffered Lidocaine 1% SYRIN 1 ml INTRADERM ONE (18:08)
[2021-05-03] MEDS ORDERED: Insulin GLARGINE 100 un/ml 10 ml VIAL SUBCUT SCH (21:00)
[2021-05-03] MEDS ORDERED: Furosemide 40 mg/4 ml IV VIAL IV SLOW PU ONE (21:47)
[2021-05-03] MEDS ORDERED: Furosemide 40 mg/4 ml IV VIAL ONE (21:54)
[2021-05-03] MEDS: Acetaminophen IV 1 GM/100ML 100 ML IV PRN (22:45)
[2021-05-04] MEDS: Morphine 2 MG/ML SYRINGE IV PRN ×7 (00:40→19:42)
[2021-05-04 03:45] LABS: Urine Color Yellow
[2021-05-04 03:46] LABS: Urine Appearance Clear; Urine Bilirubin Negative (Negative); Urine Blood Negative (Negative); Urine Glucose 3+(>=500 mg/dL) (Negative); Urine Ketones Negative (Negative); Urine Nitrite Negative (Negative); Urine Protein Negative (Negative); Urine Urobilinogen Positive (Negative); Urine pH 5 (5-9)
[2021-05-04 03:49] LABS: Urine Bacteria Absent (Absent); Urine Granular Casts Present (Absent); Urine Red Blood Cell 3+(>10/hpf) (Absent); Urine Squamous Epithelial Cell Present (Absent); Urine Uric Acid Crystals Present (Absent); Urine White Blood Cell Trace(0-5/hpf) (Absent); Urine Yeast Present (Absent)
[2021-05-04 06:02] LABS: ABS Lymphocytes 0.6 10^3/ul (1.0-4.8); ABS Monocytes 0.3 10^3/ul (0-0.8); ABS Neutrophils 11.4 10^3/ul (1.5-7.7); Eosinophil % 0.3 %; Hematocrit 43 % (42-52); Hemoglobin 14.5 g/dL (14.0-18.0); Lymphocyte % 4.6 %; Mean Corpuscular HGB Conc 34 g/dL (31-36); Mean Corpuscular Hemoglobin 29 pg (27-31); Mean Corpuscular Volume 88 fL (80-94); Platelet Count 170 10^3/uL (150-450); Red Blood Count 4.92 10^6 /uL (4.18-5.48); Red Cell Distribution Width 13 % (10-15); White Blood Count 12.3 10^3/uL (3.5-10.8)
[2021-05-04 06:28] LABS: Calcium 8.6 mg/dL (8.6-10.3); Magnesium 2.3 mg/dL (1.9-2.7); Potassium 4.6 mmol/L (3.5-5.0); eGFR CKD-EPI 77.4 (>60)
[2021-05-04] MEDS: ZOSYN 3.375 GM Q8H per EXTENDED INFUSION IV SCH ×2 (06:36→14:25)
[2021-05-04] MEDS: Heparin DRIP 25,000 UNITS BAG 25,000 UNITS/500 ML BAG IV SCH ×3 (06:51→21:00)
[2021-05-04] MEDS: Polyethylene Glycol 3350 17 GM PACKET PO SCH ×2 (08:43→08:55)
[2021-05-04] MEDS: Insulin GLARGINE 100 un/ml 10 ml VIAL SUBCUT SCH (08:47)
[2021-05-04] MEDS: Acetylcysteine 600mgCAP(RENAL) PO SCH (08:54)
[2021-05-04] MEDS: Magnesium Hydroxide LIQ 30 ML UDC PO SCH (08:55)
[2021-05-04] MEDS: CMC: Selenium 200 mcg TAB (NF) PO SCH (09:00)
[2021-05-04] MEDS ORDERED: Insulin GLARGINE 100 un/ml 10 ml VIAL SUBCUT SCH (09:00)
[2021-05-04] MEDS: Acetaminophen IV 1 GM/100ML 100 ML IV PRN (15:18)
[2021-05-04] MEDS ORDERED: Lorazepam PYXIS KEY ONE (15:40)
[2021-05-04] MEDS ORDERED: LORazepam 2 mg VIAL 1 ml ONE (15:40)
[2021-05-04] MEDS ORDERED: Lorazepam PYXIS KEY PRN (15:40)
[2021-05-04] MEDS: LORazepam 2 mg VIAL 1 ml IV PUSH PRN ×3 (15:45→20:43)
[2021-05-04] MEDS ORDERED: fentaNYL 250 mcg/5 ml 50 MCG/ML 5 ml VIAL (250 MCG) ONE (20:51)
[2021-05-04] MEDS ORDERED: Succinylcholine 200 mg VIAL 20 mg/ml 10 ml VIAL (200 mg) ONE (20:51)
[2021-05-04] MEDS ORDERED: Midazolam 10 mg/10 ml VIAL 1 mg/ml 10 ml VIAL (10 mg) ONE (20:51)
[2021-05-04] MEDS ORDERED: Rocuronium 50 mg VIAL 10 mg/ml 5 ml VIAL (50 mg) ONE (20:51)
[2021-05-04] MEDS ORDERED: Etomidate 40 mg/20 ml (2 MG/ML) 20 ml VIAL (40 mg) ONE (20:51)
[2021-05-04] MEDS ORDERED: Propofol 10 mg/ml 100 ML BTL 100 ML ONE (20:59)
[2021-05-04] MEDS ORDERED: Propofol 10 mg/ml 100 ML BTL 100 ML IV SCH (21:00)
[2021-05-04] MEDS ORDERED: EPINEPHrine SYR 0.1MG/ML 10 ml SYRINGE ONE (21:15)
[2021-05-04] MEDS ORDERED: Sodium Bicarbonate 8.4% SYR 50 ml SYRINGE ONE (21:15)
[2021-05-04] MEDS ORDERED: Norepinephrine 16 MCG/ML D5W IVPREMIX (4 MG/250 ML) in D5W IV ONE (21:15)
[2021-05-04] MEDS ORDERED: Amiodarone IV 150 mg/3 ml VIAL ONE (21:15)
[2021-05-04] MEDS ORDERED: Norepinephrine 16MCG/ML BAG NS 4,000 MCG/250 ML BAG IV SCH (22:00)
[2021-05-04] MEDS: PHENYLEPHRINE IVPB SCH (22:00)
[2021-05-04] MEDS: NS 0.9% IVPB SCH (22:00)
[2021-05-04 22:14] LABS: PCO2 Arterial 61 mmHg (35-45)
[2021-05-04 22:21] LABS: Hematocrit 38 % (42-52); Hemoglobin 12.7 g/dL (14.0-18.0); Mean Corpuscular HGB Conc 34 g/dL (31-36); Mean Corpuscular Hemoglobin 30 pg (27-31); Mean Corpuscular Volume 89 fL (80-94); Mean Platelet Volume 9.3 fL (7.4-10.4); Platelet Count 273 10^3/uL (150-450); Red Blood Count 4.24 10^6 /uL (4.18-5.48); Red Cell Distribution Width 13 % (10-15); White Blood Count 23.6 10^3/uL (3.5-10.8)
[2021-05-04 22:23] LABS: PO2 Arterial 39 mmHg (80-100)
[2021-05-04] MEDS ORDERED: Cisatracurium 100 MG in NS 0.9% 250 ml 200 ML IV SCH (22:30)
[2021-05-04] MEDS ORDERED: FENTANYL IV ONE (22:33)
[2021-05-04] MEDS ORDERED: [UNRECOGNIZED DRUG - OTHER] IV ONE (22:33)
[2021-05-04 22:34] LABS: INR 1.19 (0.86-1.15)
[2021-05-04 22:38] LABS: ALT 136 U/L (7-52); AST 163 U/L (13-39); Albumin 2.8 g/dL (3.2-5.2); Albumin/Globulin Ratio 0.8 (1-3); Alkaline Phosphatase 97 U/L (35-149); Anion Gap 14 mmol/L (2-11); Blood Urea Nitrogen 30 mg/dL (6-24); CO2 Carbon Dioxide 28 mmol/L (22-32); Calcium 7.7 mg/dL (8.6-10.3); Chloride 86 mmol/L (101-111); Globulin 3.4 g/dL (2-4); Glucose 368 mg/dL (70-100); Potassium 4.3 mmol/L (3.5-5.0); Sodium 128 mmol/L (135-145); Total Protein 6.2 g/dL (6.4-8.9); eGFR CKD-EPI 64.3 (>60)
[2021-05-04 22:54] LABS: ABS Eosinophils 0.7 10^3/ul (0-0.6); ABS Lymphocytes 1.8 10^3/ul (1.0-4.8); ABS Neutrophils 20.1 10^3/ul (1.5-7.7); Lymphocyte % 7.5 %; Nucleated Red Blood Cells % 0.1
[2021-05-04] MEDS ORDERED: Midazolam 5 mg/5 ml VIAL 1 mg/ml 5 ml VIAL (5 mg) IV SLOW PU ONE ×2 (22:55→23:27)
[2021-05-04] MEDS ORDERED: NS 0.9% 500 ml BAG 500 ML IV ONE (22:55)
[2021-05-04] MEDS ORDERED: .Amiodarone 24HR ONLY IV Protocol Order Note IV ONE (22:56)
[2021-05-04] MEDS ORDERED: fentaNYL INFUSION 50 mcg/mL VL 2,500 MCG/50 ML VIAL IV SCH (23:00)
[2021-05-04 23:05] LABS: Magnesium 2.1 mg/dL (1.9-2.7)
[2021-05-04] MEDS ORDERED: Amiodarone 360 MG IVPREMIX 360 MG/200 ML BAG IV SCH (23:10)
[2021-05-04 23:23] LABS: Troponin I 0.06 ng/mL (<0.03)
[2021-05-04] MEDS ORDERED: Midazolam 50 MG VIAL IV DRIP 50 ML IV SCH (23:45)
[2021-05-05] MEDS: Saline FLUSH-PERIPHERAL 10 ML SYRINGE IV FLUSH SCH ×2 (00:49→04:58)
[2021-05-05] MEDS: Acetylcysteine 600mgCAP(RENAL) PO SCH ×2 (00:50→10:03)
[2021-05-05] MEDS: Insulin GLARGINE 100 un/ml 10 ml VIAL SUBCUT SCH (00:50)
[2021-05-05] MEDS: ZOSYN 3.375 GM Q8H per EXTENDED INFUSION IV SCH ×2 (00:51→06:51)
[2021-05-05] MEDS: Magnesium Hydroxide LIQ 30 ML UDC PO SCH ×2 (00:51→10:03)
[2021-05-05] MEDS: Polyethylene Glycol 3350 17 GM PACKET PO SCH ×2 (00:51→09:55)
[2021-05-05] MEDS: Acetaminophen IV 1 GM/100ML 100 ML IV PRN (01:06)
[2021-05-05] MEDS: Chlorhexidine MOUTHWASH 0.12% 15 ML UDC TOPICAL SCH ×5 (01:22→11:06)
[2021-05-05 01:51] LABS: PCO2 Arterial 68 mmHg (35-45)
[2021-05-05 01:55] LABS: PO2 Arterial 58 mmHg (80-100)
[2021-05-05] MEDS ORDERED: Insulin GLARGINE 100 un/ml 10 ml VIAL SUBCUT ONE (02:29)
[2021-05-05] MEDS ORDERED: Heparin DRIP 25,000 UNITS BAG 25,000 UNITS/500 ML BAG IV SCH (03:45)
[2021-05-05] MEDS ORDERED: Heparin 5000 UNITS/ML 1 mL VIAL IV SCH (04:00)
[2021-05-05] MEDS ORDERED: Midazolam 50 MG VIAL IV DRIP 50 ML IV SCH (04:44)
[2021-05-05] MEDS ORDERED: fentaNYL INFUSION 50 mcg/mL VL 2,500 MCG/50 ML VIAL IV SCH ×2 (04:44→05:08)
[2021-05-05] MEDS: PHENYLEPHRINE IVPB SCH (04:58)
[2021-05-05] MEDS: NS 0.9% IVPB SCH (04:58)
[2021-05-05] MEDS ORDERED: Amiodarone 360 MG IVPREMIX 360 MG/200 ML BAG IV SCH (05:10)
[2021-05-05 05:30] LABS: PCO2 Arterial 68 mmHg (35-45); PO2 Arterial 70 mmHg (80-100)
[2021-05-05] MEDS ORDERED: Heparin 5000 UNITS/ML 1 mL VIAL SUBCUT SCH (06:00)
[2021-05-05 06:47] LABS: ABS Eosinophils 0.2 10^3/ul (0-0.6); ABS Lymphocytes 1.6 10^3/ul (1.0-4.8); ABS Monocytes 0.6 10^3/ul (0-0.8); ABS Neutrophils 18.1 10^3/ul (1.5-7.7); Eosinophil % 1.2 %; Hematocrit 37 % (42-52); Hemoglobin 12.3 g/dL (14.0-18.0); Lymphocyte % 7.9 %; Mean Corpuscular HGB Conc 34 g/dL (31-36); Mean Corpuscular Hemoglobin 30 pg (27-31); Mean Corpuscular Volume 89 fL (80-94); Mean Platelet Volume 9.2 fL (7.4-10.4); Platelet Count 223 10^3/uL (150-450); Red Blood Count 4.13 10^6 /uL (4.18-5.48); Red Cell Distribution Width 13 % (10-15); White Blood Count 20.6 10^3/uL (3.5-10.8)
[2021-05-05 07:04] LABS: ALT 152 U/L (7-52); AST 78 U/L (13-39); Albumin 2.7 g/dL (3.2-5.2); Albumin/Globulin Ratio 0.8 (1-3); Alkaline Phosphatase 99 U/L (35-149); Anion Gap 4 mmol/L (2-11); Blood Urea Nitrogen 26 mg/dL (6-24); CO2 Carbon Dioxide 37 mmol/L (22-32); Calcium 7.9 mg/dL (8.6-10.3); Chloride 92 mmol/L (101-111); Globulin 3.2 g/dL (2-4); Glucose 200 mg/dL (70-100); Magnesium 2.3 mg/dL (1.9-2.7); Phosphorus 3.8 mg/dL (2.5-5.0); Potassium 4.1 mmol/L (3.5-5.0); Sodium 133 mmol/L (135-145); Total Protein 5.9 g/dL (6.4-8.9); eGFR CKD-EPI 93.9 (>60)
[2021-05-05 07:09] LABS: Troponin I 0.43 ng/mL (<0.03)
[2021-05-05] MEDS ORDERED: Pantoprazole VIAL 40 MG VIAL IV SCH (09:00)
[2021-05-05] MEDS ORDERED: Erythromycin OPTH OINT APPLIC OINT BOTH EYES SCH (09:00)
[2021-05-05 09:15] LABS: Albumin 2.7 g/dL (3.2-5.2); Albumin/Globulin Ratio 0.8 (1-3); Calcium 7.9 mg/dL (8.6-10.3); Globulin 3.2 g/dL (2-4); Magnesium 2.3 mg/dL (1.9-2.7); Phosphorus 3.6 mg/dL (2.5-5.0); Potassium 4.3 mmol/L (3.5-5.0); Total Bilirubin 0.5 mg/dL (0.2-1.0); Total Protein 5.9 g/dL (6.4-8.9); eGFR CKD-EPI 100.1 (>60)
[2021-05-05 09:25] LABS: Troponin I 0.44 ng/mL (<0.03)
[2021-05-05] MEDS: CMC: Selenium 200 mcg TAB (NF) PO SCH (10:04)
[2021-05-05 12:47] VITALS: BP 37/28
== END 2021-05-05 12:40 | disposition expired | DRG 951 ==
LOC: ED 20:32 → EDHOLD 20:32 → SUATTDRO 04-16 01:50 → MED 04-16 03:18 → SUATTDRO 04-17 11:00 → ICU 04-19 20:24
PROVIDERS: ADMIT Student in an Organized Health Care Education/Training Program; ATTEND Internal Medicine Critical Care Medicine